=== PATIENT | female | born 1965 | race Hispanic/Latino ===

== ENCOUNTER 2018-04-18 11:06 | Inpatient (IN) | payer BC ==
[~2018-04-18] VITALS: Ht 154.9 cm; Wt 81.8 kg
--- NOTE | 2018-04-18 11:54 | Diagnostic Imaging Report ---
EXAMINATION: PA and lateral views of the chest. COMPARISON: None CLINICAL HISTORY: Cough, congestion DISCUSSION: The lungs are well-inflated. Left lower lobe consolidation results in loss of the hemidiaphragmatic contour on the frontal radiograph. Right lung is clear. No definite pleural effusion. No pneumothorax. Cardiomediastinal contour and pulmonary vasculature are within normal limits. No acute osseous abnormality. IMPRESSION: Left lower lobe pneumonia. Follow-up chest radiograph in 8 weeks is suggested to document resolution after appropriate treatment. Signed by: Dr. Julian Lombardo M.D. on 04/18/2018 11:51 AM
[2018-04-18] MEDS ORDERED: LOVASTATIN40 MG PO (12:13)
[2018-04-18] MEDS ORDERED: LOSARTAN POTASS25 MG PO (12:13)
[2018-04-18] MEDS ORDERED: GLIMEPIRIDE2 MG PO (12:13)
[2018-04-18] MEDS ORDERED: ASPIR 8181 MG PO (12:13)
[2018-04-18] MEDS ORDERED: METFORMIN HCL500 MG PO (12:13)
[2018-04-18] MEDS ORDERED: CEFTRIAXONE SOD 1 GM VIAL IM STA (12:26)
[2018-04-18] MEDS ORDERED: AZITHROMYCIN 500MG/NS 250 ML 250 ML IV ONE (12:30)
[2018-04-18] MEDS ORDERED: ALBUTEROL/IPRATROPIUM 3 ML NEB NEB ONE (12:45)
[2018-04-18] MEDS ORDERED: SODIUM CHLORIDE 0.9% 1000 ML BAG IV ONE (13:00)
[2018-04-18] MEDS: D5.45%NS/KCL 20MEQ 1,000 ML IV SCH ×2 (14:37→17:13)
[2018-04-18] MEDS: AZITHROMYCIN 500MG/SOD CHL 0.9% 250ML BAG IV SCH (14:37)
[2018-04-18] MEDS: CEFTRIAXONE SOD 1 GM VIAL IV SCH (14:38)
[2018-04-18] MEDS ORDERED: DEXTROSE 50% SYRINGE 50 ML IV PRN (14:45)
[2018-04-18] MEDS ORDERED: ALBUTEROL SULF 0.083% NEB SOLN 3 ML NEB NEB SCH (14:45)
[2018-04-18] MEDS: ALBUTEROL SULF 0.083% NEB SOLN 3 ML NEB NEB SCH ×3 (14:48→23:30)
--- OUTSIDE RECORDS SUMMARY | 2018-04-18 15:01 | XMS REPORT ---
Author [facility] Address Unknown Phone Unavailable Care Team Providers Care Duralumin Mechanic Name Role Phone KODAK CRUZ Unavailable Unavailable Problems This patient has no known problems. Allergies, Adverse Reactions, Alerts This patient has no known allergies or adverse reactions. Medications This patient has no known medications. Results Test Description Test Time Test Comments Text Results Atomic Results Result Comments [facility] 2018-04[facility] 11:46:00 [place] [address] Patient Name: ANTOLIN LLANES MR #: [id number] : 1965 Age/Sex: 52/F Req #: [id number] Adm Physician: Ordered by: KODAK CRUZ MD Report #: [id number] Location: [facility] Room/Bed: Procedure: [id number] HOPD/CXR 2 VIEW - [facility] Exam Date: 04/18/18 Exam Time: 1130 REPORT STATUS: Signed EXAMINATION: PA and lateral views of the chest. COMPARISON: None CLINICAL HISTORY: Cough, congestion DISCUSSION: The lungs are well-inflated. Left lower lobe consolidation results in loss of the hemidiaphragmatic contour on the frontal radiograph. Right lung is clear. No definite pleural effusion. No pneumothorax. Cardiomediastinal contour and pulmonary vasculature are within normal limits. No acute osseous abnormality. IMPRESSION: Left lower lobe pneumonia. Follow-up chest radiograph in 8 weeks is suggested to document resolution after appropriate treatment. Signed by: Dr. Jenny Green M.D. on 04/18/2018 11:51 AM Dictated By: JENNY GREEN MD 1151 Transcribed By: FRANSICO on 04/18/18 1151 COPY TO: KODAK CRUZ MD
[2018-04-18] MEDS: INSULIN REGULAR, HUMAN 100 UNIT/1 ML 3ML VIAL SQ SCH ×2 (16:30→21:00)
[2018-04-18 16:40] VITALS: BP 118/65
[2018-04-18 17:08] VITALS: BP 118/65
[2018-04-18] MEDS ORDERED: CEFUROXIME250 MG PO (17:17)
[2018-04-18] MEDS ORDERED: BROMPHED PO (17:20)
[2018-04-18 20:00] VITALS: BP 121/65
[2018-04-18 20:52] LABS: CREATINE KINASE 100 IU/L (29-168)
[2018-04-18] MEDS ORDERED: ONDANSETRON HCL INJ 2 MG/ML VIAL IV PRN (21:00)
[2018-04-18] MEDS ORDERED: SENNOSIDES 8.6 MG TAB PO PRN (21:00)
[2018-04-18] MEDS ORDERED: ZOLPIDEM TARTRATE 5 MG TAB PO PRN (21:00)
[2018-04-18] MEDS ORDERED: ACETAMINOPHEN 325 MG TAB PO PRN (21:00)
[2018-04-18] MEDS: BROMPHED PO SCH (21:00)
[2018-04-18 21:19] LABS: CHOL/HDL RATIO 3.7 (3.0-3.6)
[2018-04-18] MEDS: BENZONATATE 100 MG CAP PO SCH (21:27)
[2018-04-18] MEDS: GUAIFENESIN/DEXTROMETHORPHAN LIQD 5 ML UDC NG SCH (21:27)
[2018-04-18] MEDS: SIMVASTATIN 20 MG TAB PO SCH (21:27)
--- NOTE | 2018-04-18 22:23 | History and Physical ---
PRIMARY CARE PHYSICIAN: Dr. Mosley CHIEF COMPLAINT: Cough and fever. HISTORY OF PRESENT ILLNESS: This is a 52-year-old woman with the history of hypertension and stroke, now developing productive cough for past 4 days with associated fever at 99 degrees Fahrenheit. Patient came to the hospital. PAST MEDICAL HISTORY: Hypertension, stroke, depression, diabetes mellitus, type 2. PAST SURGICAL HISTORY: None. ALLERGIES: PER ELECTRONIC MEDICAL RECORDS. FAMILY/SOCIAL HISTORY: Patient is . No alcohol, illicit or cigarettes. MEDICATIONS: Per electronic medical records. REVIEW OF SYSTEMS: Denies any dizziness, denies any headache, vision changes, denies any leg pain, back pain, denies any other symptoms, denies any nausea, vomiting, diarrhea. PHYSICAL EXAMINATION VITAL SIGNS: Reviewed. GENERAL: A tired-appearing woman, resting in bed. HEENT: Anicteric. CARDIOVASCULAR: Normal S1, S2. LUNGS: She has reduced breath sounds. Mildly coarse. ABDOMEN: Soft, nontender, nondistended. EXTREMITIES: No edema. SKIN: Dry. PSYCHIATRIC: Flat affect. NEUROLOGIC: Alert and oriented x3, moving all extremities. LABS: Reviewed. MEDICATIONS: Reviewed. ASSESSMENT: A 52-year-old woman. 1. Left lung pneumonia, which is community-acquired pneumonia. 2. Diabetes mellitus, type 2. 3. Hypertension. 4. Hyperlipidemia. 5. Severe obesity with body mass index 35.7. PLAN 1. Continue antibiotics. 2. Follow up cultures. 3. Obtain sputum culture. 4. Restart home medication. 5. Start antitussive medication and loratadine. 6. Monitor closely. 7. Use SCD and Pepcid for prophylaxis. 8. Follow up labs in the morning. Job#: [id number] CQ
[2018-04-19] VITALS (8 sets, daily range): BP systolic 100–121; BP diastolic 54–72
[2018-04-19] MEDS: CEFTRIAXONE SOD 1 GM VIAL IV SCH ×2 (02:45→12:37)
[2018-04-19] MEDS: ALBUTEROL SULF 0.083% NEB SOLN 3 ML NEB NEB SCH ×6 (03:32→23:45)
[2018-04-19 04:33] LABS: BASOPHILS % 0.5 % (0.0-1.0); HEMATOCRIT 35.8 % (34.2-44.1); HEMOGLOBIN 11.3 g/dL (12.0-16.0); LYMPHOCYTES # (AUTO) 1.7 (1.0-3.2); LYMPHOCYTES % 41.7 % (18.0-39.1); MEAN CORPUSCULAR HEMOGLOBIN 30.1 pg (28-32); MEAN CORPUSCULAR HGB CONC 31.6 g/dL (31-35); MEAN CORPUSCULAR VOLUME 95.2 fL (81-99); MONOCYTES # (AUTO) 0.3 (0.2-0.8); MONOCYTES % 8.4 % (4.4-11.3); NEUTROPHILS # (AUTO) 1.9 (2.1-6.9); NEUTROPHILS % 47.9 % (38.7-80.0); PLATELET COUNT 220 x10e3/uL (140-360); RED BLOOD COUNT 3.76 x10e6/uL (3.6-5.1); RED CELL DISTRIBUTION WIDTH 12.3 % (11.7-14.4)
[2018-04-19 04:50] LABS: BLOOD UREA NITROGEN 6 mg/dL (7-26); BUN/CREATININE RATIO 9 (6-25); CALCIUM 8.3 mg/dL (8.4-10.2); CARBON DIOXIDE 23 mmol/L (22-29); CHLORIDE 106 mmol/L (98-107); CREATININE, SERUM 0.68 mg/dL (0.57-1.11); EST GLOMERULAR FILTRATION RATE > 60 ML/MIN (60-); GLUCOSE 201 mg/dL (74-118); SODIUM 137 mmol/L (136-145)
[2018-04-19] MEDS: D5.45%NS/KCL 20MEQ 1,000 ML IV SCH ×2 (05:00→09:23)
[2018-04-19] MEDS: GUAIFENESIN/DEXTROMETHORPHAN LIQD 5 ML UDC NG SCH ×3 (05:00→21:12)
[2018-04-19 06:03] LABS: CREATINE KINASE 90 IU/L (29-168)
[2018-04-19] MEDS: INSULIN REGULAR, HUMAN 100 UNIT/1 ML 3ML VIAL SQ SCH ×4 (07:30→21:00)
[2018-04-19 07:37] LABS: BAND NEUTROPHILS % (MANUAL) 2 %; EOSINOPHILS % (MANUAL) 1 % (0-7); LYMPHOCYTES % (MANUAL) 44 % (19-48); MONOCYTES % (MANUAL) 6 % (3.4-9.0); NEUTROPHILS % (MANUAL) 45 % (40-74)
[2018-04-19 07:38] LABS: ANISOCYTOSIS SLIGHT; PLATELET ESTIMATE ADEQUATE; PLATELET MORPHOLOGY COMMENT NORMAL; RBC MORPHOLOGY COMMENT NORMAL
[2018-04-19] MEDS: ASPIRIN 81 MG CHEW TAB PO SCH (09:19)
[2018-04-19] MEDS: FAMOTIDINE 20 MG TAB PO SCH ×2 (09:19→16:00)
[2018-04-19] MEDS: BENZONATATE 100 MG CAP PO SCH ×3 (09:19→21:12)
[2018-04-19] MEDS: BROMPHED PO SCH ×4 (09:19→21:00)
[2018-04-19] MEDS: AZITHROMYCIN 500MG/SOD CHL 0.9% 250ML BAG IV SCH (14:00)
[2018-04-19] MEDS: METFORMIN HCL 500 MG TAB PO SCH ×2 (16:00→21:12)
[2018-04-19] MEDS: GLIMEPIRIDE 2 MG TAB PO SCH ×2 (16:00→21:12)
[2018-04-19] MEDS: SIMVASTATIN 20 MG TAB PO SCH (21:12)
[2018-04-20] VITALS: BP 100/57
[2018-04-20] MEDS: ALBUTEROL SULF 0.083% NEB SOLN 3 ML NEB NEB SCH ×2 (03:00→07:26)
[2018-04-20] MEDS: CEFTRIAXONE SOD 1 GM VIAL IV SCH (04:30)
[2018-04-20] MEDS: GUAIFENESIN/DEXTROMETHORPHAN LIQD 5 ML UDC NG SCH (04:58)
[2018-04-20] MEDS: INSULIN REGULAR, HUMAN 100 UNIT/1 ML 3ML VIAL SQ SCH (07:30)
[2018-04-20 07:57] VITALS: BP 109/54
[2018-04-20] MEDS ORDERED: TESSALON PERLE100 MG PO (08:11)
[2018-04-20] MEDS ORDERED: Guaifenesin/Dextromethorphan NG (08:11)
[2018-04-20] MEDS ORDERED: LEVAQUIN500 MG PO (08:11)
[2018-04-20 09:00] VITALS: BP 109/54
[2018-04-20] MEDS: BROMPHED PO SCH (09:00)
[2018-04-20] MEDS ORDERED: LOSARTAN POTASSIUM 25 MG TAB PO SCH (09:00)
[2018-04-20] MEDS: GLIMEPIRIDE 2 MG TAB PO SCH (09:29)
[2018-04-20] MEDS: ASPIRIN 81 MG CHEW TAB PO SCH (09:29)
[2018-04-20] MEDS: FAMOTIDINE 20 MG TAB PO SCH (09:29)
[2018-04-20] MEDS: METFORMIN HCL 500 MG TAB PO SCH (09:30)
[2018-04-20] MEDS: BENZONATATE 100 MG CAP PO SCH (09:30)
== END 2018-04-20 11:18 | disposition home or self-care (01) | DRG 195 ==
LOC: FSED 11:06 → ERHOLD 14:31 → MED/SURG2 16:21
PROVIDERS: ADMIT Internal Medicine; ATTEND Internal Medicine
DX: J18.9 Pneumonia, unspecified organism (principal); E78.5 Hyperlipidemia, unspecified; I10 Essential (primary) hypertension; R09.02 Hypoxemia; E11.9 Type 2 diabetes mellitus without complications; F32.9 Major depressive disorder, single episode, unspecified; E66.9 Obesity, unspecified; Z68.35 Body mass index [BMI] 35.0-35.9, adult; Z86.73 Personal history of transient ischemic attack (TIA), and cerebral infarction without residual deficits; Z79.84 Long term (current) use of oral hypoglycemic drugs; Z79.82 Long term (current) use of aspirin
CPT/HCPCS: 36415; 71046; 80048; 80053; 80061; 82550; 82553; 82948; 83036; 83605; 84484; 85025; 87040; 87070; 87071; 87186; 87205; 87400; 93005; 94640; 99284; J0456; J0696